=== PATIENT | female | born 1995 | race African-American/Black ===

== ENCOUNTER 2017-07-25 18:00 | Emergency (ER) | payer BC, MEDICAID ==
[~2017-07-25] VITALS: Ht 160 cm; Wt 130.0 kg
[2017-07-25 18:19] VITALS: BP 128/62; PULSE 67; RESP 16; TEMP 98; O2SAT 100
[2017-07-25 20:43] VITALS: BP 133/78; PULSE 70; RESP 18; O2SAT 98
--- NOTE | 2017-07-25 21:23 | PD ---
HPI Chief Complaint: Abdominal Pain Time Seen by Provider: 20:51 Travel History International Travel<30 days: No Contact w/Intl Traveler<30days: No Traveled to known affect area: No History of Present Illness HPI This is a 22-year-old female with no significant past medical history, presents today with complaints of vaginal irritation and burning sensation. Patient denies any thick discharge. The patient reports she has had this in the past however it has never been this bad. She reports that she feels a burning sensation in her vagina. She states that when she urinates it appears to burn on the outside as well. There are no other complaints at the time of my examination. Patient does not feel as though she is . She did not state whether she was truly sexually active but stated that we could test for the . PFSH Past Medical History Medical History: Denies Significant Hx Hx Anticoagulant Therapy: No Diabetes: No Diminished Hearing: No Tetanus Vaccination: Unknown Influenza Vaccination: No ?: Not LMP: 07/17/17 Past Surgical History Surgical History: No Previous Surgery Social History Alcohol Use: No Tobacco Use: Yes Substance Use: No Allergies-Medications (Allergen,Severity, Reaction): Coded Allergies: No Known Allergies (Unverified , 07/25/17) Reported Meds & Prescriptions Reported Meds & Active Scripts Active No Active Prescriptions or Reported Medications Review of Systems Except as stated in HPI: all other systems reviewed are Neg General / Constitutional: No: Fever HENT: No: Headaches, Lightheadedness Cardiovascular: No: Chest Pain or Discomfort, Irregular Rhythm Respiratory: No: Shortness of Breath Gastrointestinal: No: Nausea, Vomiting, Abdominal Pain Genitourinary: Positive: Other (Vaginal irritation), No: Frequency, Dysuria Skin: No Lesions (No vaginal lesions) Neurologic: No: Weakness, Dizziness, Headache Physical Exam Narrative GENERAL: Well-nourished, well-developed patient. SKIN: Focused skin assessment warm/dry. HEAD: Normocephalic/atraumatic. EYES: No scleral icterus. No injection or drainage. NECK: Supple, trachea midline. CARDIOVASCULAR: Regular rate and rhythm without murmurs, gallops, or rubs. RESPIRATORY: Breath sounds equal bilaterally. No accessory muscle use. GASTROINTESTINAL: Abdomen soft, obese, non-tender, nondistended. GENITOURINARY: In the presence of the charge nurse Jaquelin. Normal external genitalia without lesions or erythema. Vaginal vault without blood or drainage. Cultures for wet prep and GC chlamydia were obtained. On bimanual exam, no cervical motion tenderness or adnexal tenderness. MUSCULOSKELETAL: No cyanosis, or edema. NEUROLOGICAL: Awake and alert. Cranial nerves II through XII intact. Motor grossly within normal limits. Five out of 5 muscle strength in all muscle groups. Normal speech. Data Data Last Documented VS Vital Signs Date Time Temp Pulse Resp B/P (MAP) Pulse Ox O2 Delivery O2 Flow Rate FiO2 07/25/17 20:43 70 18 133/78 (96) 98 Room Air 07/25/17 18:19 98.0 Orders Orders Urinalysis - C+S If Indicated (07/25/17 21:03) Gc And Chlamydia Pcr (07/25/17 21:03) Ed Urine Pregnancytest Poc (07/25/17 21:03) Wet Prep Profile (07/25/17 21:45) Labs Laboratory Tests Test 07/25/17 20:50 07/25/17 21:10 Urine Color YELLOW Urine Turbidity CLEAR Urine pH 6.5 Urine Specific [place] 1.025 Urine Protein NEG mg/dL Urine Glucose (UA) NEG mg/dL Urine Ketones TRACE mg/dL Urine Occult Blood NEG Urine Nitrite NEG Urine Bilirubin NEG Urine Urobilinogen 1.0 MG/DL Urine Leukocyte Esterase NEG Urine RBC 0-3 /hpf Urine WBC 3-5 /hpf Urine Squamous Epithelial Cells 0-5 /hpf Urine Mucus MOD /lpf Microscopic Urinalysis Comment CULT NOT INDICATED Clue Cells (Wet Prep) NONE SEEN Vaginal Trichomonas (Wet Prep) NONE SEEN Vaginal Yeast (Wet Prep) NONE SEEN MDM Medical Decision Making Medical Screen Exam Complete: Yes Emergency Medical Condition: Yes Differential Diagnosis Bacterial vaginosis versus STI versus candidal vaginosis Narrative Course 22-year-old female presents today with complaints of vaginal irritation. Patient has negative wet prep. There is no cervical motion tenderness or adnexal discomfort. The patient states that she does wear both statin and cotton underwear. I recommended that she switch to cotton underwear for at least a month to see if the symptoms resolve. She instructed to get some of the [id number] vaginal irritation medication to see if that also helps. She instructed to follow-up with the [facility] physician for formal Pap smear. She is also instructed to return if she develops any worsening symptoms. Her chlamydia and GC tests are pending at this time and I told her they do come back positive we will contact her. Diagnosis Primary Impression: Vaginal irritation Additional Instructions: Purchase [id number] vaginal preparation to see if it helps alleviate some of your symptoms. Please try wearing cotton underwear 1 month to see if it helps with her symptoms as well. Follow-up with a [facility] doctor for formal Pap smear and pelvic exam. Scripts No Active Prescriptions or Reported Meds Disposition: 01 DISCHARGE HOME Condition: Stable Romeo Muñoz MD Jul 25, 2017 21:23
[2017-07-25 21:30] LABS: BILIRUBIN, URINE NEG (NEG); BLOOD, URINE NEG (NEG); GLUCOSE,URINE NEG (NEG); KETONE, URINE TRACE mg/dL (NEG); NITRITE,URINE NEG (NEG); PH, URINE 6.5 (5.0-8.5); URINE COLOR YELLOW (YELLW/STRAW); URINE LEUKOCYTE ESTERASE NEG (NEG)
[2017-07-25 22:06] LABS: MUCUS URINE MOD /lpf (OCC); RBC, URINE 0-3 /hpf (0-3); SQUAMOUS EPITHELIAL CELL URINE 0-5 /hpf (0-5)
[2017-07-25 22:53] VITALS: BP 128/76; PULSE 72; RESP 18; O2SAT 98
== END 2017-07-25 23:01 | disposition home or self-care (01) ==
LOC: PHED 18:00
DX: N89.8 Other specified noninflammatory disorders of vagina (principal)
CPT/HCPCS: 81001; 84703; 87210; 87491; 87591; 99284

== ENCOUNTER 2017-08-01 17:35 | Emergency (ER) | payer MEDICAID ==
[~2017-08-01] VITALS: Ht 160 cm; Wt 128.0 kg
[2017-08-01 17:41] VITALS: BP 149/79; PULSE 75; RESP 16; TEMP 98.7; O2SAT 98
--- NOTE | 2017-08-01 19:36 | PD ---
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 She was seen in the ED several days prior and diagnosed with vaginal irritation. She was contacted by the hospital that her cultures for gonorrhea came back positive. She denies fever, abdominal pain, vaginal discharge, nausea or vomiting. She is asymptomatic. PFSH Past Medical History Medical History: Denies Significant Hx Hx Anticoagulant Therapy: No Diabetes: No Diminished Hearing: No ?: Not LMP: 07/19/17 Social History Alcohol Use: No Tobacco Use: Yes Substance Use: No Allergies-Medications (Allergen,Severity, Reaction): Coded Allergies: No Known Allergies (Unverified , 08/01/17) Reported Meds & Prescriptions Reported Meds & Active Scripts Active No Active Prescriptions or Reported Medications Review of Systems Except as stated in HPI: all other systems reviewed are Neg General / Constitutional: No: Fever Eyes: No: Visual changes HENT: No: Headaches Cardiovascular: No: Chest Pain or Discomfort Respiratory: No: Shortness of Breath Gastrointestinal: No: Abdominal Pain Genitourinary: No: Dysuria Physical Exam Narrative GENERAL: Alert and well-appearing 22-year-old female SKIN: Warm and dry. HEAD: Normocephalic. EYES: No injection or drainage. NECK: Supple GASTROINTESTINAL: Abdomen soft, non-tender, nondistended. MUSCULOSKELETAL: No cyanosis, or edema. BACK: No CVA tenderness. Data Data Last Documented VS Vital Signs Date Time Temp Pulse Resp B/P (MAP) Pulse Ox O2 Delivery O2 Flow Rate FiO2 08/01/17 17:41 98.7 75 16 149/79 (102) 98 MDM Medical Decision Making Medical Screen Exam Complete: Yes Emergency Medical Condition: Yes Differential Diagnosis Gonorrhea, chlamydia, PID Narrative Course 22-year-old female here requesting treatment for gonorrhea. She is denying any symptoms. Abdominal pain. Vital signs are stable. She was administered Rocephin 250 mg IM and azithromycin 1 g PO. She was instructed to return if she develops signs or symptoms of PID. Diagnosis Primary Impression: Gonorrhea Referrals: Primary Care Physician Additional Instructions: You were treated today for gonorrhea. All partners need to be treated Scripts No Active Prescriptions or Reported Meds Disposition: 01 DISCHARGE HOME Condition: Stable Lauryn Cosme Aug 01, 2017 19:36
[2017-08-01] MEDS ORDERED: cefTRIAXone 250 MG VIAL IM ONE (19:45)
[2017-08-01] MEDS ORDERED: LIDOCAINE HCL 1% 50 ML VIAL IM ONE (19:45)
[2017-08-01] MEDS ORDERED: AZITHROMYCIN PWD FOR SUSP 1 GM PACKET PO ONE (19:45)
== END 2017-08-01 20:17 | disposition home or self-care (01) ==
LOC: PHEFT 17:35
DX: A54.9 Gonococcal infection, unspecified (principal); Z72.0 Tobacco use
CPT/HCPCS: 96372; 99283; J0696

== ENCOUNTER 2017-10-05 16:43 | Emergency (ER) | payer MEDICAID ==
[~2017-10-05] VITALS: Ht 160 cm; Wt 131.5 kg
[2017-10-05 16:54] VITALS: BP 115/56; PULSE 81; RESP 17; TEMP 98.4; O2SAT 97
[2017-10-05] MEDS ORDERED: IBUPROFEN 800 MG TAB PO ONE (18:00)
--- NOTE | 2017-10-05 18:03 | PD ---
HPI Chief Complaint: Injury Time Seen by Provider: 17:43 Travel History International Travel<30 days: No Contact w/Intl Traveler<30days: No Traveled to known affect area: No History of Present Illness HPI 22-year-old -[place] female presents emergency department with 2 complaints. #1 is right heel pain and tenderness for the last month. Patient denies any specific injury. She states it is progressively worsened over the past month. She states is always worse first thing in the morning and if she sits for any time and then gets up again. Patient has not tried taking any anti -inflammatories or Tylenol. Pain in the right heel is rated as 8 out of 10 and worse with ambulation. She has not tried stretching or ice. Patient also states #2, dysuria since yesterday. She denies fever, nausea, vomiting, cramping, or flank pain. She denies vaginal discharge. She has no known drug allergies. PFSH Past Medical History Hx Anticoagulant Therapy: No Diabetes: No Diminished Hearing: No ?: Unknown LMP: beginning of september Social History Alcohol Use: No Tobacco Use: Yes Substance Use: No Allergies-Medications (Allergen,Severity, Reaction): Coded Allergies: No Known Allergies (Unverified , 10/05/17) Reported Meds & Prescriptions Reported Meds & Active Scripts Active No Active Prescriptions or Reported Medications Review of Systems Except as stated in HPI: all other systems reviewed are Neg General / Constitutional: No: Fever Eyes: No: Visual changes HENT: No: Headaches Cardiovascular: No: Chest Pain or Discomfort Respiratory: No: Shortness of Breath Gastrointestinal: No: Abdominal Pain Genitourinary: Positive: Dysuria (See history of present illness) Musculoskeletal: Positive: Arthralgias, Pain (See history of present illness) Skin: No Rash Neurologic: No: Weakness Psychiatric: No: Depression Endocrine: No: Polydipsia Hematologic/Lymphatic: No: Easy Bruising Physical Exam Narrative GENERAL: Moderately obese female in no acute distress. SKIN: Warm and dry. Normal color. Normal turgor. No rash. HEAD: Atraumatic. Normocephalic. EYES: Pupils equal and round. No scleral icterus. No injection or drainage. ENT: No nasal bleeding or discharge. Mucous membranes pink and moist. Pharynx is clear. Airways patent. NECK: Trachea midline. Supple and nontender. CARDIOVASCULAR: Regular rate and rhythm. RESPIRATORY: No accessory muscle use. Clear to auscultation. Breath sounds equal bilaterally. MUSCULOSKELETAL: Extremities without clubbing, cyanosis, or edema. No obvious deformities. Right heel appears normal. There is no obvious ecchymosis or signs of injury. Patient has point tenderness at the base of the calcaneus more medial than central, of the plantar fascia. No other significant findings are noted. NEUROLOGICAL: Awake and alert. No obvious cranial nerve deficits. Motor grossly within normal limits. Five out of 5 muscle strength in the arms and legs. Normal speech. PSYCHIATRIC: Appropriate mood and affect; insight and judgment normal. Data Data Last Documented VS Vital Signs Date Time Temp Pulse Resp B/P (MAP) Pulse Ox O2 Delivery O2 Flow Rate FiO2 10/05/17 16:54 98.4 81 17 115/56 (75) 97 Orders Orders Ibuprofen (Motrin) (10/05/17 18:00) Urinalysis - C+S If Indicated (10/05/17 17:52) Labs Laboratory Tests Test 10/05/17 18:22 Urine Color YELLOW Urine Turbidity CLEAR Urine pH 6.5 Urine Specific [place] 1.028 Urine Protein NEG mg/dL Urine Glucose (UA) NEG mg/dL Urine Ketones NEG mg/dL Urine Occult Blood NEG Urine Nitrite NEG Urine Bilirubin NEG Urine Urobilinogen 2.0 MG/DL Urine Leukocyte Esterase SMALL Urine RBC 1 /hpf Urine WBC 1 /hpf Urine Squamous Epithelial Cells 1 /hpf Microscopic Urinalysis Comment CULT NOT INDICATED MDM Medical Decision Making Medical Screen Exam Complete: Yes Emergency Medical Condition: Yes Differential Diagnosis Right heel pain. Plantar fasciitis. Dysuria. Narrative Course Patient is given 800 mg ibuprofen p.o. now. Radiographic imaging is not felt warranted. Urinalysis is sent to the lab. Urinalysis is unremarkable. Patient will be continued on ibuprofen 800 mg 3 times daily for the next 10 days. Patient should use ice, stretching, and proper foot wear as discussed. Patient should follow-up with Dr. Vines, the internal controls analyst on-call if symptoms persist. Diagnosis Primary Impression: Plantar fasciitis of right foot Referrals: Chelle Vines DPMarkos Patient Instructions: General Instructions, Plantar Fasciitis (ED), Plantar Fasciitis Exercises (ED) Additional Instructions: Urinalysis is unremarkable. Patient will be continued on ibuprofen 800 mg 3 times daily for the next 10 days. Patient should use ice, stretching, and proper foot wear as discussed. Patient should follow-up with Dr. Vines, the internal controls analyst on-call if symptoms persist. Med/Other Pt SpecificInfo: Prescription(s) given Scripts No Active Prescriptions or Reported Meds Disposition: 01 DISCHARGE HOME Condition: Stable Rao Monaco Oct 05, 2017 18:03
[2017-10-05 18:37] LABS: BILIRUBIN, URINE NEG (NEG); BLOOD, URINE NEG (NEG); GLUCOSE,URINE NEG (NEG); KETONE, URINE NEG (NEG); NITRITE,URINE NEG (NEG); PH, URINE 6.5 (5.0-8.5); SQUAMOUS EPITHELIAL CELL URINE 1 /hpf (0-5); URINE COLOR YELLOW (YELLW/STRAW); URINE LEUKOCYTE ESTERASE SMALL (NEG)
[2017-10-05] MEDS ORDERED: IBUP1TAB7 PO (18:43)
== END 2017-10-05 18:50 | disposition home or self-care (01) ==
LOC: NEPD 16:43
DX: M72.2 Plantar fascial fibromatosis (principal); R30.0 Dysuria; Z72.0 Tobacco use
CPT/HCPCS: 81001; 99283